=== PATIENT | male | born 1955 | race Hispanic/Latino ===

== ENCOUNTER 2022-08-22 17:03 | Inpatient (IN) | payer MEDICARE, OTHER ==
[2022-08-22] MEDS ORDERED: Acetaminophen 500 MG TAB ONE (17:56)
[2022-08-22 18:16] LABS: Bilirubin Neg (Negative); Blood, Urine Negative (Negative); Clarity Clear (Clear); Glucose, Urine (Dipstick) Normal (Negative); Ketone, Urine Negative (Negative); Leukocyte Negative (Negative); Nitrite Negative (Negative); Protein, Urine (Dipstick) Negative (Neg-Trace); Specific Gravity, Urine 1.005 (1.005-1.030); Urobilinogen Normal mg/dL (Less than 2)
[2022-08-22 18:29] LABS: #Eosinphils 0.1 10x3/uL (0.0-0.5); #Monocytes 0.8 10x3/uL (0.0-1.1); #Neutrophils 7.9 10x3/uL (1.5-8.4); %Basophils 0.2 % (0.0-2.0); %Eosinophils 0.5 % (0.0-6.0); %Lymphocytes 8.3 % (18.0-47.0); %Monocytes 7.9 % (0.0-10.0); %Neutrophils 82.3 % (40.0-75.0); Hemoglobin 14.1 g/dL (13.5-17.5); Mean Corpuscular HGB CONC 34.6 g/dL (32.0-36.0); Mean Corpuscular Hemoglobin 30.8 pg (27.0-33.0); Mean Corpuscular Volume 89.1 fl (81.2-95.1); Mean Platelet Volume 9.2 fl (7.4-10.4); Platelet Count 110 10x3/uL (150-450); RBC Distribution Width 16.6 % (11.5-14.5); Red Blood Cell (RBC) Count 4.58 10x6/uL (4.32-5.72); White Blood Cell (WBC) Count 9.6 10x3/uL (3.5-10.5)
[2022-08-22 18:40] LABS: INR-International Normal Ratio 2.5; PTT 38.2 sec (22.0-33.0); Prothrombin Time 25.6 sec (9.5-12.1)
[2022-08-22 18:54] LABS: ALT (SGPT) 28 U/L (8-55); AST (SGOT) 30 U/L (5-34); Albumin 4.1 g/dL (3.4-4.8); Alkaline Phosphatase 81 U/L (40-110); Anion Gap 16 mmol/L (10-20); BUN (Urea Nitrogen) 44 mg/dL (8.4-25.7); Bilirubin, Total 2.1 mg/dL (0.2-1.2); CK (CPK) 46 U/L (30-200); Calc. Creatinine Clearance 0 mL/min (70-130); Calcium 9.2 mg/dL (7.8-10.44); Carbon Dioxide 25 mmol/L (23-31); Chloride 95 mmol/L (98-107); Estimated GFR 31; Globulin 3.4 g/dL (2.4-3.5); Glucose 93 mg/dL (80-115); Potassium 4.9 mmol/L (3.5-5.1); Protein, Total 7.5 g/dL (5.8-8.1); Sodium 131 mmol/L (136-145)
[2022-08-22 19:12] LABS: CKMB 2.3 ng/mL (0-6.6)
[2022-08-22] MEDS ORDERED: Furosemide 40 MG/4 ML VIAL ONE (19:21)
[2022-08-22] MEDS ORDERED: Senokot S 8.6-50 MG TAB PO PRN (19:58)
[2022-08-22] MEDS ORDERED: Ondansetron PF 4 MG/2 ML Vial IVP PRN (19:58)
[2022-08-22] MEDS ORDERED: Acetaminophen 325 MG TAB PO PRN (19:58)
[2022-08-22] MEDS ORDERED: Calcium Carbonate 500 MG ChewTAB PO PRN (19:58)
[2022-08-22] MEDS ORDERED: Guaifenesin DM 100-10/5 ML UDCUP PO PRN (19:58)
[2022-08-22 23:07] LABS: SARS-CoV-2 NAA Rapid Test Not Detected (NotDetected)
[2022-08-22 23:55] VITALS: BMI 28.7
[2022-08-22] MEDS ORDERED: Sodium Chloride 0.9% 250 ML IV SCH (23:59)
[2022-08-22] MEDS ORDERED: Sodium Bicarbonate Tab 325 MG TAB PO SCH (23:59)
[2022-08-22] MEDS ORDERED: Hydrocortisone Sod Succ/PF 100 mg/2 ml Vial IVP SCH (23:59)
[2022-08-23 00:01] LABS: CKMB 1.7 ng/mL (0-6.6)
[2022-08-23 00:24] LABS: Legionella Urinary Ag Negative (Negative); Strep pneumo Urine Ag NEGATIVE (NEGATIVE)
[2022-08-23] MEDS ORDERED: Vancomycin HCl 1 GM in Sodium Chloride 0.9% 250 ML 250 ML IVPB SCH (01:00)
[2022-08-23] MEDS ORDERED: Milrinone Lactate/D5W 20 MG in Premix Bag 1 BAG IVPB SCH (01:00)
[2022-08-23 04:59] LABS: Anion Gap 17 mmol/L (10-20); BUN (Urea Nitrogen) 45 mg/dL (8.4-25.7); Calc. Creatinine Clearance 51 mL/min (70-130); Calcium 8.7 mg/dL (7.8-10.44); Carbon Dioxide 20 mmol/L (23-31); Chloride 97 mmol/L (98-107); Estimated GFR 38; Glucose 137 mg/dL (80-115); Potassium 3.8 mmol/L (3.5-5.1); Sodium 130 mmol/L (136-145)
[2022-08-23 05:00] LABS: INR-International Normal Ratio 2.5; PTT 41.4 sec (22.0-33.0); Prothrombin Time 26.1 sec (9.5-12.1)
[2022-08-23 05:23] LABS: Free T4 (Free Thyroxine) 1.31 ng/dL (0.70-1.48); Thyroid Stimulating Hormone 2.4551 uIU/mL (0.35-4.94)
[2022-08-23 05:25] LABS: CKMB 1.6 ng/mL (0-6.6)
[2022-08-23 06:33] LABS: #Monocytes 0.5 10x3/uL (0.0-1.1); #Neutrophils 6.8 10x3/uL (1.5-8.4); %Basophils 0.1 % (0.0-2.0); %Lymphocytes 3.8 % (18.0-47.0); %Monocytes 6.9 % (0.0-10.0); %Neutrophils 88.5 % (40.0-75.0); Hemoglobin 12.7 g/dL (13.5-17.5); Mean Corpuscular HGB CONC 34.4 g/dL (32.0-36.0); Mean Corpuscular Hemoglobin 30.7 pg (27.0-33.0); Mean Corpuscular Volume 89.1 fl (81.2-95.1); Mean Platelet Volume 9.2 fl (7.4-10.4); Platelet Count 98 10x3/uL (150-450); RBC Distribution Width 16.5 % (11.5-14.5); Red Blood Cell (RBC) Count 4.14 10x6/uL (4.32-5.72); White Blood Cell (WBC) Count 7.5 10x3/uL (3.5-10.5)
[2022-08-23] MEDS: Levothyroxine Sodium 75 MCG TAB PO SCH (07:01)
[2022-08-23] MEDS ORDERED: predniSONE 20 MG TAB PO SCH (08:00)
[2022-08-23] MEDS: Sodium Bicarbonate Tab 325 MG TAB PO SCH ×2 (08:43→20:39)
[2022-08-23] MEDS: Warfarin Sodium 3 MG TAB PO SCH (16:42)
[2022-08-23] MEDS ORDERED: Warfarin Sodium 5 MG TAB PO SCH (17:00)
[2022-08-23] MEDS ORDERED: VANCOMYCIN 1.25 GM/250 ML BAG 1.25 GM in Premix Bag 1 BAG IVPB SCH (23:59)
[2022-08-24] MEDS: Levothyroxine Sodium 75 MCG TAB PO SCH (04:19)
[2022-08-24 06:55] LABS: INR-International Normal Ratio 1.9; PTT 38.1 sec (22.0-33.0); Prothrombin Time 20.2 sec (9.5-12.1)
[2022-08-24] MEDS: predniSONE 20 MG TAB PO SCH (08:28)
[2022-08-24] MEDS: Sodium Bicarbonate Tab 325 MG TAB PO SCH ×2 (08:29→20:35)
[2022-08-24 11:03] LABS: Anion Gap 16 mmol/L (10-20); BUN (Urea Nitrogen) 37 mg/dL (8.4-25.7); Calc. Creatinine Clearance 64 mL/min (70-130); Calcium 9.5 mg/dL (7.8-10.44); Carbon Dioxide 18 mmol/L (23-31); Chloride 101 mmol/L (98-107); Estimated GFR 51; Glucose 112 mg/dL (80-115); Potassium 3.8 mmol/L (3.5-5.1); Sodium 131 mmol/L (136-145)
[2022-08-24 11:15] LABS: #Monocytes 0.8 10x3/uL (0.0-1.1); #Neutrophils 6.3 10x3/uL (1.5-8.4); %Basophils 0.3 % (0.0-2.0); %Eosinophils 0.5 % (0.0-6.0); %Monocytes 10.1 % (0.0-10.0); %Neutrophils 78.2 % (40.0-75.0); Hemoglobin 12.9 g/dL (13.5-17.5); Mean Corpuscular HGB CONC 33.9 g/dL (32.0-36.0); Mean Corpuscular Hemoglobin 30.4 pg (27.0-33.0); Mean Corpuscular Volume 89.9 fl (81.2-95.1); Mean Platelet Volume 9.3 fl (7.4-10.4); Platelet Count 134 10x3/uL (150-450); RBC Distribution Width 16.5 % (11.5-14.5); Red Blood Cell (RBC) Count 4.24 10x6/uL (4.32-5.72)
[2022-08-24] MEDS: Warfarin Sodium 3 MG TAB PO SCH (16:28)
[2022-08-24 23:21] LABS: Vancomycin, Trough 9.8 ug/mL
[2022-08-24] MEDS ORDERED: Vancomycin 1.5 GRAM/300 ML BAG 1.5 GM in Premix Bag 1 BAG IVPB SCH (23:59)
[2022-08-25] MEDS: Levothyroxine Sodium 75 MCG TAB PO SCH (05:03)
[2022-08-25 05:58] LABS: #Monocytes 0.5 10x3/uL (0.0-1.1); #Neutrophils 3.7 10x3/uL (1.5-8.4); %Basophils 0.2 % (0.0-2.0); %Eosinophils 0.8 % (0.0-6.0); %Lymphocytes 13.8 % (18.0-47.0); %Monocytes 9.7 % (0.0-10.0); %Neutrophils 73.7 % (40.0-75.0); Hemoglobin 12.7 g/dL (13.5-17.5); Mean Corpuscular HGB CONC 34.3 g/dL (32.0-36.0); Mean Corpuscular Hemoglobin 30.9 pg (27.0-33.0); Mean Platelet Volume 9.6 fl (7.4-10.4); Platelet Count 120 10x3/uL (150-450); RBC Distribution Width 16.5 % (11.5-14.5); Red Blood Cell (RBC) Count 4.11 10x6/uL (4.32-5.72); White Blood Cell (WBC) Count 5.1 10x3/uL (3.5-10.5)
[2022-08-25 06:09] LABS: INR-International Normal Ratio 1.8; PTT 34.2 sec (22.0-33.0); Prothrombin Time 18.7 sec (9.5-12.1)
[2022-08-25 06:20] LABS: Anion Gap 15 mmol/L (10-20); BUN (Urea Nitrogen) 35 mg/dL (8.4-25.7); Calc. Creatinine Clearance 70 mL/min (70-130); Calcium 9.4 mg/dL (7.8-10.44); Carbon Dioxide 19 mmol/L (23-31); Chloride 102 mmol/L (98-107); Estimated GFR 55; Glucose 92 mg/dL (80-115); Potassium 4.9 mmol/L (3.5-5.1); Sodium 131 mmol/L (136-145)
[2022-08-25] MEDS: Sodium Bicarbonate Tab 325 MG TAB PO SCH (08:33)
[2022-08-25] MEDS: predniSONE 20 MG TAB PO SCH (08:33)
[2022-08-25 12:45] VITALS: BP 114/69; TEMP 97.3
== END 2022-08-25 12:59 | disposition home or self-care (01) | DRG 193 ==
LOC: CSHERS 17:03 → CSHTELE 22:56
PROVIDERS: ADMIT Student in an Organized Health Care Education/Training Program; ATTEND Internal Medicine
DX: J18.9 Pneumonia, unspecified organism (principal); Q22.5 Ebstein's anomaly; I13.0 Hypertensive heart and chronic kidney disease with heart failure and stage 1 through stage 4 chronic kidney disease, or unspecified chronic kidney disease; I48.11 Longstanding persistent atrial fibrillation; I50.811 Acute right heart failure; B19.20 Unspecified viral hepatitis C without hepatic coma; M10.9 Gout, unspecified; E03.9 Hypothyroidism, unspecified; I95.9 Hypotension, unspecified; R53.81 Other malaise; Z20.822 Contact with and (suspected) exposure to COVID-19; K74.60 Unspecified cirrhosis of liver; N18.30 Chronic kidney disease, stage 3 unspecified; Z79.899 Other long term (current) drug therapy; Z79.890 Hormone replacement therapy; Z88.8 Allergy status to other drugs, medicaments and biological substances; Z88.6 Allergy status to analgesic agent; Z82.49 Family history of ischemic heart disease and other diseases of the circulatory system
CPT/HCPCS: 36415; 71045; 80048; 80053; 80202; 81003; 82533; 82550; 82553; 83605; 83880; 84145; 84439; 84443; 84484; 85025; 85610; 85730; 87040; 87081; 87086; 87449; 87899; 93005; 93306; 93970; 94760; 96365; J1642; J1720; J1940; J1956; J3370; J7030; J7050; J7512